=== PATIENT | male | born 1955 | race Caucasian/White ===

== ENCOUNTER 2023-05-02 00:52 | Emergency (ER) | payer BC ==
[2023-05-02] MEDS: HYDROmorphone 1 MG/ML Syringe IM ONE (01:31)
[2023-05-02] MEDS: Methocarbamol 500 MG Tab PO ONE (01:32)
== END 2023-05-02 02:54 | disposition home or self-care (01) ==
LOC: JP.ED 00:52
DX: M47.26 Other spondylosis with radiculopathy, lumbar region (principal); E78.00 Pure hypercholesterolemia, unspecified; J45.909 Unspecified asthma, uncomplicated
CPT/HCPCS: 72131; 76377; 96372; 99283; A9270; J1170